=== PATIENT | male | born 1995 | race Caucasian/White ===

== ENCOUNTER 2017-02-12 19:21 | Emergency (ER) | payer SELFPAY ==
[~2017-02-12] VITALS: Ht 175.3 cm; Wt 72.7 kg
[~2017-02-12 19:21] MED LIST: AUGMENTIN 400 M1 CTB PO; RISPERDAL2 MG PO
[2017-02-12 19:24] VITALS: TEMP 98.3
[2017-02-12 20:19] VITALS: BP 124/72; PULSE 90
== END 2017-02-12 20:24 | disposition home or self-care (01) ==
LOC: COL.ER 19:21
DX: S20.219A Contusion of unspecified front wall of thorax, initial encounter (principal); F17.210 Nicotine dependence, cigarettes, uncomplicated; Z98.890 Other specified postprocedural states; Y04.2XXA Assault by strike against or bumped into by another person, initial encounter

== ENCOUNTER 2018-11-02 13:38 | Emergency (ER) | payer SELFPAY ==
[~2018-11-02] VITALS: Ht 177.8 cm; Wt 77.3 kg
[~2018-11-02 13:38] MED LIST changes: +ZITHROMAX Z PA250 MG PO; +ZOFRAN 4MG T4 MG/TAB PO
[2018-11-02 14:17] VITALS: TEMP 99.1
[2018-11-02] MEDS ORDERED: CRUTCHES MC (17:22)
[2018-11-02 17:26] VITALS: BP 132/63; PULSE 78
== END 2018-11-02 17:27 | disposition home or self-care (01) ==
LOC: COL.ER 13:38
DX: S82.831A Other fracture of upper and lower end of right fibula, initial encounter for closed fracture (principal); F17.210 Nicotine dependence, cigarettes, uncomplicated; F12.90 Cannabis use, unspecified, uncomplicated; W01.0XXA Fall on same level from slipping, tripping and stumbling without subsequent striking against object, initial encounter; Y92.410 Unspecified street and highway as the place of occurrence of the external cause; Y93.67 Activity, basketball
CPT/HCPCS: Q4045

== ENCOUNTER 2019-08-10 10:56 | Emergency (ER) | payer SELFPAY ==
[~2019-08-10] VITALS: Ht 177.8 cm; Wt 77.3 kg
[~2019-08-10 10:56] MED LIST changes: +CRUTCHES MC
[2019-08-10 12:09] VITALS: BP 130/76; TEMP 97.6
[2019-08-10] MEDS ORDERED: CEPHALEXIN500 M1 PO (12:42)
[2019-08-10 13:09] VITALS: PULSE 67
== END 2019-08-10 13:10 | disposition home or self-care (01) ==
LOC: COL.ER 10:56
DX: L73.9 Follicular disorder, unspecified (principal)

== ENCOUNTER 2019-09-07 09:22 | Emergency (ER) | payer SELFPAY ==
[~2019-09-07] VITALS: Ht 177.8 cm; Wt 77.3 kg
[~2019-09-07 09:22] MED LIST changes: +CEPHALEXIN500 M1 PO
[2019-09-07 09:26] VITALS: BP 128/76; TEMP 98
[2019-09-07] MEDS ORDERED: PREDNISONE20 MG PO (10:05)
[2019-09-07] MEDS ORDERED: TRIAMCINOLONE A15 G3 TP (10:05)
[2019-09-07 10:20] VITALS: PULSE 62
== END 2019-09-07 10:20 | disposition home or self-care (01) ==
LOC: COL.ER 09:22
DX: R21 Rash and other nonspecific skin eruption (principal); F17.210 Nicotine dependence, cigarettes, uncomplicated

== ENCOUNTER 2020-06-15 07:49 | Emergency (ER) | payer SELFPAY ==
[~2020-06-15] VITALS: Ht 177.8 cm; Wt 72.7 kg
[~2020-06-15 07:49] MED LIST changes: +PREDNISONE20 MG PO; +TRIAMCINOLONE A15 G3 TP
[2020-06-15 08:24] VITALS: BP 147/82; PULSE 96
== END 2020-06-15 08:19 | disposition home or self-care (01) ==
LOC: COL.ER 07:49
DX: R59.0 Localized enlarged lymph nodes (principal); Z79.52 Long term (current) use of systemic steroids

== ENCOUNTER 2021-02-24 18:48 | Emergency (ER) | payer SELFPAY ==
[~2021-02-24] VITALS: Ht 177.8 cm; Wt 75.0 kg
[2021-02-24 21:28] VITALS: BP 121/68; PULSE 64; TEMP 98.1
== END 2021-02-24 21:29 | disposition home or self-care (01) ==
LOC: COL.ER 18:48
DX: L72.9 Follicular cyst of the skin and subcutaneous tissue, unspecified (principal)

== ENCOUNTER 2022-01-29 02:28 | Emergency (ER) | payer SELFPAY ==
[~2022-01-29] VITALS: Ht 177.8 cm; Wt 77.3 kg
[2022-01-29 02:36] VITALS: BP 145/82; PULSE 95; TEMP 98.5
[2022-01-29] MEDS ORDERED: AMOXICILLIN 8751 TAB PO (02:42)
== END 2022-01-29 02:46 | disposition home or self-care (01) ==
LOC: COL.ER 02:28
DX: H66.91 Otitis media, unspecified, right ear (principal); Z28.310 Unvaccinated for COVID-19